=== PATIENT | male | born 1975 | race Two or more races ===

== ENCOUNTER 2021-10-24 14:12 | Emergency (ER) | payer OTHER ==
[~2021-10-24] VITALS: Ht 182.9 cm; Wt 82.0 kg
[2021-10-24] MEDS ORDERED: DIATR MEGLU/DIATRIZOATE SOLN 30ML ONE (16:07)
[2021-10-24 18:00] VITALS: BP 134/68
== END 2021-10-24 18:17 | disposition home or self-care (01) ==
LOC: ER 14:12
DX: Z93.1 Gastrostomy status (principal); F12.10 Cannabis abuse, uncomplicated; F15.10 Other stimulant abuse, uncomplicated; Z90.49 Acquired absence of other specified parts of digestive tract
CPT/HCPCS: 74018; 99283; Q9963